=== PATIENT | male | born 1960 | race Two or more races ===

== ENCOUNTER 2018-07-06 11:28 | Emergency (ER) | payer OTHER ==
[2018-07-06 11:53] VITALS: BP 118/86
--- NOTE | 2018-07-06 12:20 | EDPHY ---
H & P Stated Complaint: Pt. states low mid back pain last 3 mo.'s ,denies n/v/d or fever Time Seen by Provider: 07/06/18 11:56 HPI/ROS: Chief Complaint: Low back pain HPI: 57-year-old male presenting with low back pain which has been present for the last 3 months. Patient states that he had an injury at work 3 months ago when he was hit in his lower back with a piece of fence. He did not see workman 's Comp but did get some physical therapy. He has been taking ibuprofen to 400 mg twice a day. He is continuing to have low pain, worse at night. Described as a warm sensation down in his lower back. No difficulty ambulating. No numbness or weakness. No urinary retention, urgency or frequency. Pain has been persistent and has not improving. He is presenting today hoping to have an MRI to evaluate his pain. He has not followed up with primary care or a child care specialist. He is Iranian-speaking only. Interpretation was obtained via the video telemedicine senior payroll manager. ROS: 10 systems were reviewed and were negative except those elements noted in the HPI. PMH: Denies Social History: No smoking, no alcohol, no recreational drug use Family History: non-contributory Physical Exam: Gen: Awake, Alert, No Distress HEENT: Nose: no rhinorrhea Eyes: PERRLA, EOMI Mouth: Moist mucosa Neck: Supple, no JVD Back: no CVA tenderness, no midline tenderness Ext: no edema, non-tender Skin: no rash Neuro: CN II-XII intact, Sensation grossly intact, Strength 5/5 in bilateral upper and lower extremities. He has normal straight leg raise bilaterally. Normal plantar and dorsiflexion. Normal patellar reflexes. Normal gait. He is neurologically intact in all dermatomes. - Personal History Current Tetanus Diphtheria and Acellular Pertussis (TDAP): Yes - Medical/Surgical History Hx Asthma: No Hx Chronic Respiratory Disease: No Hx Diabetes: No Hx Cardiac Disease: No Hx Renal Disease: No Hx Cirrhosis: No Hx Alcoholism: No Hx HIV/AIDS: No Hx Splenectomy or Spleen Trauma: No Other PMH: MEd hx-none. Surg-none Constitutional: Initial Vital Signs Temperature (C) 37.1 C 07/06/18 11:43 Heart Rate 79 07/06/18 11:43 Respiratory Rate 16 07/06/18 11:43 Blood Pressure 118/86 H 07/06/18 11:43 O2 Sat (%) 95 07/06/18 11:43 O2 Delivery Mode Room Air Allergies/Adverse Reactions: No Known Allergies Allergy (Verified 07/06/18 11:42) Home Medications: Medication Instructions Recorded NK [No Known Home Meds] 07/06/18 Medical Decision Making ED Course/Re-evaluation: Patient presenting with chronic back pain status post an injury 3 months ago. He has no red flags for acute neurosurgical emergency. He is afebrile. He is completely neurologically intact. No evidence of cauda equina or epidural abscess. He did not have baseline radiographs will obtain dose today. I will give him back pain instructions. Will refer for outpatient follow-up. Departure - Departure Disposition: Home, Routine, Self-Care Clinical Impression: Back pain Condition: Good Instructions: Back Pain (ED), Lower Back Exercises (ED) Additional Instructions: Take ibuprofen, 600 mg, 3 times a day. You may also take acetaminophen, 1000 mg every 6 hours. You may replace a Lidoderm patch every 24 hr, these are available over-the- counter. Apply ice for 15 minutes of every hour while awake. Make sure to remain active. Did do not lay in bed or sit in a chair for long periods. Avoid heavy lifting or bending at work until cleared by your physician. Please see the attached back exercise instructions. Follow up with your primary care physician in 2-3 days for further evaluation. Referrals: [facility],. [Clinic] - As per Instructions Yandel Lindo MD [Medical Doctor] - As per Instructions
== END 2018-07-06 13:00 | disposition home or self-care (01) ==
LOC: CED 11:28
DX: M54.5 Low back pain (principal); Y99.0 Civilian activity done for income or pay
CPT/HCPCS: 72100-PO; 99283-ER